=== PATIENT | female | born 1985 | race Caucasian/White ===

== ENCOUNTER 2018-03-14 21:10 | Emergency (ER) | payer MEDICAID ==
[~2018-03-14] VITALS: Ht 160 cm; Wt 52.0 kg
[~2018-03-14 21:10] MED LIST: CYCL-1 PO; MEDR150V IM; PREN1TAB79 PO; VENL-191 PO
[2018-03-14 21:14] VITALS: BP 149/94
[2018-03-14] MEDS ORDERED: LORazepam 1 MG tablet PO ONE (21:45)
[2018-03-14 21:59] LABS: BASOPHILS % (AUTO) 0.3 % (0-1); EOSINOPHILS # (AUTO) 0.3 X10'3 (0-0.9); EOSINOPHILS % (AUTO) 2.7 % (0-6); HEMATOCRIT 44.8 % (35.0-45.0); HEMOGLOBIN 15.2 g/dl (12.0-16.0); LYMPHOCYTES # (AUTO) 3.1 X10'3 (1.1-4.8); LYMPHOCYTES % (AUTO) 30.2 % (21-51); MEAN CORPUSCULAR HGB CONC 33.9 % (33.0-36.5); MEAN CORPUSCULAR VOLUME 94.4 FL (78-98); MEAN PLATELET VOLUME 7.9 FL (7.4-10.4); MONOCYTES # (AUTO) 0.7 X10'3 (0-0.9); MONOCYTES % (AUTO) 6.4 % (2-12); NEUTROPHILS # (AUTO) 6.2 X10'3 (1.8-7.7); NEUTROPHILS % (AUTO) 60.4 % (42-75); PLATELET COUNT 198 X10'3 (140-440); RED BLOOD COUNT 4.74 X10'6 (4.20-5.60); RED CELL DISTRIBUTION WIDTH 13.9 % (11.5-14.5); WHITE BLOOD COUNT 10.3 X10'3 (4.5-11.0)
[2018-03-14 22:14] LABS: ALANINE AMINOTRANSFERASE 28 U/L (12-78); ALBUMIN 4.2 G/DL (3.4-5.0); ALBUMIN/GLOBULIN RATIO 1.2 (1.1-1.5); ALKALINE PHOSPHATASE 57 IU/L (46-116); ANION GAP 10 (8-16); ASPARTATE AMINO TRANSFERASE 25 U/L (10-37); BILIRUBIN,TOTAL 0.4 MG/DL (0.1-1.0); BLOOD UREA NITROGEN 11 MG/DL (7-18); BUN/CREATININE RATIO 14.1 (6.6-38.0); CALCIUM 9.2 MG/DL (8.5-10.1); CHLORIDE 105 MMOL/L (99-107); CREATININE 0.78 MG/DL (0.40-0.90); GLUCOSE 100 MG/DL (70-104); POTASSIUM 3.7 MMOL/L (3.5-5.1); SODIUM 141 MMOL/L (135-145); TOTAL CARBON DIOXIDE 26.4 MMOL/L (24-32); TOTAL PROTEIN 7.7 G/DL (6.4-8.2); eGFR 86 ML/MIN
[2018-03-14 22:24] LABS: ETHANOL < 0.010 GM/DL (0.0-0.010)
[2018-03-14] MEDS ORDERED: LORA-269 PO (22:43)
== END 2018-03-14 23:08 | disposition home or self-care (01) ==
LOC: ER 21:11
DX: F41.0 Panic disorder [episodic paroxysmal anxiety] (principal); G89.29 Other chronic pain; Z88.8 Allergy status to other drugs, medicaments and biological substances; Z79.899 Other long term (current) drug therapy
CPT/HCPCS: 36415; 80053; 80320; 84443; 85025; 99284

== ENCOUNTER 2018-03-29 14:17 | Emergency (ER) | payer MEDICAID ==
[~2018-03-29] VITALS: Ht 160 cm; Wt 50.6 kg
[~2018-03-29 14:17] MED LIST changes: +LORA-269 PO
[2018-03-29 14:22] VITALS: BP 118/79
[2018-03-29] MEDS ORDERED: LORazepam 1 MG tablet PO ONE (14:50)
[2018-03-29 15:03] LABS: BASOPHILS % (AUTO) 0.4 % (0-1); EOSINOPHILS # (AUTO) 0.1 X10'3 (0-0.9); EOSINOPHILS % (AUTO) 1.8 % (0-6); HEMOGLOBIN 14.2 g/dl (12.0-16.0); LYMPHOCYTES # (AUTO) 2.1 X10'3 (1.1-4.8); LYMPHOCYTES % (AUTO) 27.4 % (21-51); MEAN CORPUSCULAR HEMOGLOBIN 32.3 PG (27.0-31.0); MEAN CORPUSCULAR HGB CONC 34.6 % (33.0-36.5); MEAN CORPUSCULAR VOLUME 93.2 FL (78-98); MEAN PLATELET VOLUME 7.4 FL (7.4-10.4); MONOCYTES # (AUTO) 0.4 X10'3 (0-0.9); MONOCYTES % (AUTO) 5.2 % (2-12); NEUTROPHILS % (AUTO) 65.2 % (42-75); PLATELET COUNT 253 X10'3 (140-440); RED CELL DISTRIBUTION WIDTH 13.1 % (11.5-14.5); WHITE BLOOD COUNT 7.6 X10'3 (4.5-11.0)
[2018-03-29 15:16] LABS: ALANINE AMINOTRANSFERASE 21 U/L (12-78); ALBUMIN 3.9 G/DL (3.4-5.0); ALBUMIN/GLOBULIN RATIO 1.1 (1.1-1.5); ALKALINE PHOSPHATASE 52 IU/L (46-116); ANION GAP 10 (8-16); ASPARTATE AMINO TRANSFERASE 18 U/L (10-37); BILIRUBIN,TOTAL 0.3 MG/DL (0.1-1.0); BLOOD UREA NITROGEN 12 MG/DL (7-18); CALCIUM 8.5 MG/DL (8.5-10.1); CHLORIDE 107 MMOL/L (99-107); GLUCOSE 97 MG/DL (70-104); POTASSIUM 3.6 MMOL/L (3.5-5.1); SODIUM 142 MMOL/L (135-145); TOTAL CARBON DIOXIDE 25.1 MMOL/L (24-32); TOTAL PROTEIN 7.3 G/DL (6.4-8.2); eGFR 83 ML/MIN
[2018-03-29 15:25] LABS: ETHANOL < 0.010 GM/DL (0.0-0.010)
[2018-03-30] MEDS ORDERED: GABA-532 PO (09:47)
[2018-03-30] MEDS ORDERED: RISP1TAB3 PO (09:47)
== END 2018-03-29 16:00 | disposition left against medical advice (07) ==
LOC: ER 14:18
DX: F22 Delusional disorders (principal); F41.9 Anxiety disorder, unspecified; G89.29 Other chronic pain; F32.9 Major depressive disorder, single episode, unspecified; F41.0 Panic disorder [episodic paroxysmal anxiety]; Z88.6 Allergy status to analgesic agent; Z79.899 Other long term (current) drug therapy
CPT/HCPCS: 36415; 80053; 80320; 84443; 85025; 99284

== ENCOUNTER 2018-03-29 16:22 | Emergency (ER) | payer MEDICAID ==
[~2018-03-29] VITALS: Ht 558.9 cm; Wt 50.0 kg
[2018-03-29] MEDS ORDERED: LORazepam 1 MG tablet PO ONE (16:50)
[2018-03-29] MEDS ORDERED: LORazepam 2 mg/ml vial IM ONE (17:00)
[2018-03-29] MEDS ORDERED: diphenhydrAMINE 50 mg/ml inj IM ONE (17:00)
[2018-03-29] MEDS ORDERED: haloperidol lactate 5mg/ml inj IM ONE (17:00)
[2018-03-30 08:41] LABS: URINE AMPHETAMINE SCREEN NEGATIVE (Neg); URINE BARBITUATE SCREEN NEGATIVE (Neg); URINE BENZODIAZEPINES SCREEN NEGATIVE (Neg); URINE CANNABINOID SCREEN POSITIVE (Neg); URINE COCAINE SCREEN NEGATIVE (Neg); URINE METHADONE SCREEN NEGATIVE (Neg); URINE OPIATE SCREEN NEGATIVE (Neg); URINE PHENCYCLIDINE SCREEN NEGATIVE (Neg)
[2018-03-30 08:50] LABS: CLARITY,URINE SLIGHTLY CLOUDY (Clear); COLOR,URINE YELLOW (Yellow); GLUCOSE, URINE NEGATIVE (Neg); KETONES,URINE NEGATIVE (Neg); LEUKOCYTE ESTERASE ,URINE NEGATIVE (Neg); NITRITES, URINE POSITIVE (Neg); OCCULT BLOOD,URINE LARGE (Neg); PROTEIN,URINE NEGATIVE (Neg); UROBILINOGEN,URINE 0.2 E.U/dL (0.2-1.0)
[2018-03-30 08:58] LABS: UA COLLECTION TYPE CLN CATCH MIDSTREAM
[2018-03-30 08:59] LABS: BACTERIA,URINE 4+ /HPF (Neg); MUCUS STRANDS NONE SEEN /LPF (Neg); RBC,URINE 0-2 /HPF (0-2); SQUAMOUS EPITHELIAL CELL,UR FEW /LPF (FEW); WBC,URINE 0-4 /HPF (0-4)
[2018-03-30] MEDS ORDERED: RISP1TAB3 PO (09:47)
[2018-03-30] MEDS ORDERED: GABA-532 PO (09:47)
[2018-03-30] MEDS ORDERED: cyclobenzaprine 10mg tablet PO PRN (11:35)
[2018-03-30] MEDS ORDERED: LORazepam 1 MG tablet PO PRN (11:35)
[2018-03-30] MEDS ORDERED: gabapentin 300mg capsule PO SCH ×4 (12:00→20:00)
[2018-03-30 20:02] LABS: URINE HCG NEGATIVE (NEG)
[2018-03-30] MEDS ORDERED: risperiDONE 0.5mg tablet PO SCH (21:00)
[2018-03-30 23:05] VITALS: BP 119/80
[2018-03-31] MEDS ORDERED: venlafaxine XR 75mg capsule (Q24H) PO SCH (08:00)
[2018-06-28] MEDS ORDERED: medroxyPROGESTERone acetate 150mg/ml inj IM SCH (08:00)
== END 2018-03-30 23:18 ==
LOC: ER 16:22
DX: F41.0 Panic disorder [episodic paroxysmal anxiety] (principal); F32.9 Major depressive disorder, single episode, unspecified; F29 Unspecified psychosis not due to a substance or known physiological condition; F22 Delusional disorders; G89.29 Other chronic pain; Z88.8 Allergy status to other drugs, medicaments and biological substances; Z79.899 Other long term (current) drug therapy
CPT/HCPCS: 36415; 80305; 81001; 81025; 84443; 87088; 96372; 99285; J1200; J1630; J2060; 87077; 87186

== ENCOUNTER 2018-12-04 17:28 | Emergency (ER) | payer MEDICAID ==
[~2018-12-04] VITALS: Ht 160 cm; Wt 56.8 kg
[~2018-12-04 17:28] MED LIST changes: +GABA-532 PO; -PREN1TAB79 PO; +RISP1TAB3 PO
[2018-12-04 17:34] VITALS: BP 121/77
[2018-12-04] MEDS ORDERED: IBUP-1985 PO (18:00)
[2018-12-04] MEDS ORDERED: AMOX-422 PO (18:00)
[2018-12-04] MEDS ORDERED: HYDROcodone/acetaminophen 10/325mg tab PO ONE (18:05)
== END 2018-12-04 18:13 | disposition home or self-care (01) ==
LOC: ER 17:28
DX: K08.89 Other specified disorders of teeth and supporting structures (principal); G89.29 Other chronic pain; Z88.5 Allergy status to narcotic agent; Z79.2 Long term (current) use of antibiotics; Z79.899 Other long term (current) drug therapy
CPT/HCPCS: 99283

== ENCOUNTER 2019-01-22 15:52 | Emergency (ER) | payer MEDICAID ==
[~2019-01-22] VITALS: Ht 160 cm; Wt 55.9 kg
[~2019-01-22 15:52] MED LIST changes: +IBUP-1985 PO
[2019-01-22 16:06] VITALS: BP 144/86
[2019-01-22] MEDS ORDERED: AMOX-580 PO (16:33)
== END 2019-01-22 16:48 | disposition home or self-care (01) ==
LOC: ER 15:53
DX: K13.79 Other lesions of oral mucosa (principal); M54.2 Cervicalgia; R61 Generalized hyperhidrosis; R00.0 Tachycardia, unspecified; R51 Headache; R50.9 Fever, unspecified; K06.8 Other specified disorders of gingiva and edentulous alveolar ridge; K08.409 Partial loss of teeth, unspecified cause, unspecified class; G89.29 Other chronic pain; F17.200 Nicotine dependence, unspecified, uncomplicated; Z88.6 Allergy status to analgesic agent; Z79.899 Other long term (current) drug therapy; Z79.2 Long term (current) use of antibiotics; Z98.818 Other dental procedure status
CPT/HCPCS: 99283

== ENCOUNTER → 2019-01-31 | Emergency (ER) | payer MEDICAID ==
[~2019-01-31] VITALS: Ht 160 cm; Wt 52.7 kg
[~2019-01-31] MED LIST changes: +NO HOME MEDS; +hydrOXYzine 10 MG tablet PO PRN; +hydrOXYzine 25 MG tablet PO ONE; +risperiDONE 0.5mg tablet PO ONE; +risperiDONE 0.5mg tablet PO SCH; +risperiDONE 2mg tablet PO ONE; +risperiDONE 2mg tablet PO SCH
--- NOTE | 2019-01-31 16:06 | NUR ---
PATIENT DENIES TAKING ANY MEDICATIONS.
[2019-01-31 16:14] LABS: URINE HCG NEGATIVE (NEG)
[2019-01-31 16:21] LABS: URINE AMPHETAMINE SCREEN NEGATIVE (Neg); URINE BARBITUATE SCREEN NEGATIVE (Neg); URINE BENZODIAZEPINES SCREEN NEGATIVE (Neg); URINE CANNABINOID SCREEN NEGATIVE (Neg); URINE COCAINE SCREEN NEGATIVE (Neg); URINE METHADONE SCREEN NEGATIVE (Neg); URINE OPIATE SCREEN NEGATIVE (Neg); URINE PHENCYCLIDINE SCREEN NEGATIVE (Neg)
[2019-01-31 16:24] LABS: CLARITY,URINE CLEAR (Clear); COLOR,URINE YELLOW (Yellow); GLUCOSE, URINE NEGATIVE (Neg); KETONES,URINE NEGATIVE (Neg); LEUKOCYTE ESTERASE ,URINE NEGATIVE (Neg); NITRITES, URINE NEGATIVE (Neg); OCCULT BLOOD,URINE NEGATIVE (Neg); PROTEIN,URINE NEGATIVE (Neg); UROBILINOGEN,URINE 0.2 E.U/dL (0.2-1.0)
[2019-01-31 16:36] LABS: UA COLLECTION TYPE CLN CATCH MIDSTREAM
[2019-01-31 16:42] LABS: BASOPHILS % (AUTO) 0.2 % (0-1); EOSINOPHILS # (AUTO) 0.1 X10'3 (0-0.9); EOSINOPHILS % (AUTO) 1.1 % (0-6); HEMATOCRIT 45.3 % (35.0-45.0); LYMPHOCYTES # (AUTO) 3.8 X10'3 (1.1-4.8); MEAN CORPUSCULAR HEMOGLOBIN 31.3 PG (27.0-31.0); MEAN CORPUSCULAR VOLUME 94.7 FL (78-98); MEAN PLATELET VOLUME 8.4 FL (7.4-10.4); MONOCYTES # (AUTO) 0.7 X10'3 (0-0.9); MONOCYTES % (AUTO) 5.9 % (2-12); NEUTROPHILS # (AUTO) 7.6 X10'3 (1.8-7.7); NEUTROPHILS % (AUTO) 61.8 % (42-75); PLATELET COUNT 250 X10'3 (140-440); RED BLOOD COUNT 4.79 X10'6 (4.20-5.60); RED CELL DISTRIBUTION WIDTH 13.3 % (11.5-14.5); WHITE BLOOD COUNT 12.3 X10'3 (4.5-11.0)
[2019-01-31 16:55] LABS: ALANINE AMINOTRANSFERASE 21 U/L (12-78); ALBUMIN 4.3 G/DL (3.4-5.0); ALBUMIN/GLOBULIN RATIO 1.3 (1.1-1.5); ALKALINE PHOSPHATASE 56 IU/L (46-116); ANION GAP 10 (8-16); ASPARTATE AMINO TRANSFERASE 11 U/L (10-37); BILIRUBIN,TOTAL 0.5 MG/DL (0.1-1.0); BLOOD UREA NITROGEN 9 MG/DL (7-18); BUN/CREATININE RATIO 10.6 (6.6-38.0); CALCIUM 9.8 MG/DL (8.5-10.1); CHLORIDE 105 MMOL/L (99-107); CREATININE 0.85 MG/DL (0.40-0.90); GLUCOSE 89 MG/DL (70-104); SODIUM 141 MMOL/L (135-145); TOTAL PROTEIN 7.6 G/DL (6.4-8.2); eGFR 78 ML/MIN
[2019-01-31 17:07] LABS: ETHANOL < 0.010 GM/DL (0.0-0.010)
--- NOTE | 2019-01-31 17:21 | NUR ---
Patient transferred from the Main ER to Bed 21. Stated she was hungry. Given julian crackers and milk. When asked what brought her to the hospital, stated "The spirits brought me."
--- NOTE | 2019-01-31 18:38 | NUR ---
ASSUMED CARE FOR CARD LACER FROM DAY SHIFT LIEN LOPEZ 5150 WRITTEN BY [facility].
--- NOTE | 2019-01-31 18:52 | NUR ---
changed IAM to level 2 r/t hold
--- NOTE | 2019-01-31 19:54 | NUR ---
PT IS IN BED, EYES CLOSED, ON HER LEFT SIDE, APPEARS TO BE SLEEPING, REGULAR BREATHING
--- NOTE | 2019-01-31 20:53 | NUR ---
I CALLED PT'S , LESLY, PER PT REQUEST SHE IS VERY WORRIED ABOUT HER 4 CHILDREN AND IF THEY WERE PICKED UP FROM SCHOOL TODAY AND WHERE THEY ARE NOW. SHE REPORTS SHE LIVES WITH HER AND HER CHILDREN. REPORTS CHILDREN HAVE BEEN PICKED UP WITH NO PROBLEMS. PHONE GIVEN TO HER AND SHE SPENT 20 MIN ON THE PHONE WITH HIM SOBBING INTERMITTENTLY BUT WAS CALM AND HAVING AN APPROPRIATE CONVERSATION. PT REQUESTING THAT I CALL HIM ALSO FOR UPDATED. PT REQUESTING SOMETHING TO HELP HER SLEEP. REPORTS SHE TAKES NO HOME MEDS.
[2019-01-31] MEDS: Melatonin 3mg tablet PO SCH (21:45)
--- NOTE | 2019-01-31 22:04 | NUR ---
I PROVIDED PT WITH THE HYDROXYZINE AND MELATONIN TABLETS AND SHE HELD THE PILL CUP IN HER HANDS AND WAS SHAKING. I TALKED TO HER ABOUT THE MEDS AND ENCOURAGED HER TO TAKE THEM TO HELP WITH HER ANXIETY AND TO SLEEP. SHE REPORTS "CAN I JUST GO HOME" . PT REMINDED OF THE 5150 INVOLUNTARY HOLD. PT CRYING INTERMITTENTLY AND STARRING OFF AND DOES NOT SEEM TO BE PROCESSING WELL. CONTINUED HOLD THE PILLS AND THE WATER WITH TREMORING HANDS. I TOLD HER SHE DID NOT AHVE TO TAKE THEM IF SHE DID NOT WANT TO. SHE STARTED TO HAND THEM BACK THEN BROUGHT THEM BACK TO HER MOUTH. THIS CONTINUED OVER 10 MIN AND I SAID I WOULD HOLD THEM AND SHE CAN ASK FOR THEM LATER THEN SHE PUT THEM IN HER MOUTH AND BEGAN CRYING. PT WOULD NOT TAKE ANY WATER AND DROPPED ON THE THE TABLETS OF HYDROXYZINE. SHE IS NOW SITTING UP IN THE BED STARING AT ME. I ASKED IF SHE NEEDS ANYTHING AND SHE DOES NOT REPLY.
--- NOTE | 2019-02-01 00:57 | NUR ---
Pt has been asleep for aprox 1 hr. Currently lying on her left side and has blankets covering to her shouders. RR 14 and unlabored.
--- NOTE | 2019-02-01 04:23 | NUR ---
pt rolled over and sat up , took a sip of her water on the bedside table and then rolled over and went back to sleep.
--- NOTE | 2019-02-01 09:45 | NUR ---
PATIENT AWAKE,NO REPORTED DISCOMFORT AT THIS TIME.
--- NOTE | 2019-02-01 13:38 | NUR ---
pt is awake, sitting at bedside, head down, no agitation observed, just ate her lunch
--- NOTE | 2019-02-01 18:45 | NUR ---
Pt denies S/H/I at this time. She denies audio/visual hallucinations. Pt's affect is flat while mood is labile, vacillating between social withdrawl and moderately high anxiety/restlessness. Pt reports a previous suicide attempt "years ago by overdosing on pills." Pt presents fixated on leaving facility as a result Elopement band was placed. Pt expressed concern over her children and . When encouraged to share about her relationships and later how she came to be at [facility], pt shut down. Pt reports having a "miscarriage about a month ago." When asked how she was dealing with the loss, pt stated, "That's just how it goes sometime, you know."
--- NOTE | 2019-02-01 19:35 | NUR ---
Eloppement band #[id number] placed on pt's right wrist. Educated pt for the need of band.
--- NOTE | 2019-02-01 20:09 | NUR ---
Discussed pt's increased restless and anxiety with Dr Sierra; new orders received to include Risperdol 1mg bid, which pt reports having taken in the past with positive effect.
[2019-02-01] MEDS: Melatonin 3mg tablet PO SCH (21:00)
--- NOTE | 2019-02-01 21:40 | NUR ---
Pt moved from ED21 to ED20 to allow for relocation of a separate pt.
--- NOTE | 2019-02-01 22:30 | NUR ---
Pt sought information r/t schizophrenia. She shared being concerned about her SOLE dx, wondering if she might be schizophrenic. Reviewed some of the major parameters associated with each, asking pt what sort of things she experienced, further leading to her deciding her current dx was most accurate at this time. The exchange appeared to have a positive impact on pt as she engaged with others including staff more fully, being generally less guarded than she had been earlier in the shift. Additionally, pt shared her initial concern was r/t interactions with her which pt states, "keeps wanting me to check myself into a mental hospital." When probed about when and why the exchange occurred, pt said, "I get upset and really worried about things. I think it makes him afraid. He wants me to be better."
--- NOTE | 2019-02-02 | NUR ---
Pt asleep on back. RR 13, even and unlabored. No apparent distress @ this time.
--- NOTE | 2019-02-02 02:58 | NUR ---
Pt asleep on right side. RR 12, even and unlabored. No apparent distress at this time.
[2019-02-02 05:30] VITALS: BP 105/64
--- NOTE | 2019-02-02 05:45 | NUR ---
Pt asleep on left side. RR 13, even and unlabored. No apparent distress at this time.
--- NOTE | 2019-02-02 09:40 | NUR ---
PT QUESTIONING NEED FOR RISPERDAL. STATED THAT SHE TOOK IT LAST NIGHT AND THAT IT WAS A HALF OF A TABLET. EXPLAINED TO PT THAT THE DOSE SHE WAS GIVEN WAS 1MG OF RISPERDAL FROM A 2MG TABLET HENCE BEING GIVEN A HALF OF TABLET LAST NIGHT. PT CONTINUED TO QUESTION NEED FOR MEDICATION. PT WAS TOLD THAT THE MEDICATION WOULD TAKE A WHILE TO HELP HER AND THAT IT WILL HELP HER. PT DECIDED TO TAKE THE RISPERDAL.
--- NOTE | 2019-02-02 11:39 | NUR ---
PT'S CALLED WITH CONTACT PHONE # FOR PT'S CHILDREN: [phone]
--- NOTE | 2019-02-02 13:25 | NUR ---
PT'S IS AT BEDSIDE, PT IS TEARFUL/CRYING. SAFETY LUNCH TRAY DELIVERED TO PT
--- NOTE | 2019-02-02 13:40 | NUR ---
NURSE TO NURSE REPORT TO ANDREI GOMEZ FROM [facility] GIVEN.
--- NOTE | 2019-02-02 14:09 | NUR ---
PT HAS BEEN ACCEPTED TO [facility] WITH DR FRANCISCO ACCEPTING. CONSULTING NETWORKING ENGINEER ETA IS [phone]
--- NOTE | 2019-02-02 14:58 | NUR ---
PT NOTIFIED OF TRANSFER TO [facility] [place] [facility]. PT IS TEARY, ANXIOUS. PT ASKED FOR PHONE TO CALL AND NOTIFIY HIM.
== END | disposition home or self-care (01) ==
LOC: ER 15:14
DX: F22 Delusional disorders (principal); G89.29 Other chronic pain; F32.9 Major depressive disorder, single episode, unspecified; F41.0 Panic disorder [episodic paroxysmal anxiety]; Z88.6 Allergy status to analgesic agent; Z79.899 Other long term (current) drug therapy
CPT/HCPCS: 36415; 80053; 80305; 80320; 81003; 81025; 84443; 85025; 99285; Q0177

== ENCOUNTER 2023-09-07 12:17 | Emergency (ER) | payer MEDICAID ==
[~2023-09-07] VITALS: Ht 160 cm; Wt 54.1 kg
[~2023-09-07 12:17] MED LIST changes: -CYCL-1 PO; -GABA-532 PO; -IBUP-1985 PO; -LORA-269 PO; -MEDR150V IM; -RISP1TAB3 PO; -VENL-191 PO; -hydrOXYzine 10 MG tablet PO PRN; -hydrOXYzine 25 MG tablet PO ONE; -risperiDONE 0.5mg tablet PO ONE; -risperiDONE 0.5mg tablet PO SCH; -risperiDONE 2mg tablet PO ONE; -risperiDONE 2mg tablet PO SCH
[2023-09-07 16:49] LABS: BASOPHILS % (AUTO) 0.3 % (0-1); EOSINOPHILS # (AUTO) 0.3 X10'3 (0-0.9); EOSINOPHILS % (AUTO) 3.3 % (0-6); HEMATOCRIT 43.5 % (35.0-45.0); HEMOGLOBIN 14.7 g/dl (12.0-16.0); LYMPHOCYTES # (AUTO) 2.4 X10'3 (1.1-4.8); MEAN CORPUSCULAR HEMOGLOBIN 31.8 PG (27.0-31.0); MEAN CORPUSCULAR HGB CONC 33.8 g/dL (33.0-36.5); MEAN CORPUSCULAR VOLUME 94.1 FL (78-98); MEAN PLATELET VOLUME 7.4 FL (7.4-10.4); MONOCYTES # (AUTO) 0.7 X10'3 (0-0.9); NEUTROPHILS % (AUTO) 66.4 % (42-75); PLATELET COUNT 265 X10'3 (140-440); RED BLOOD COUNT 4.62 X10'6 (4.20-5.60); WHITE BLOOD COUNT 10.5 X10'3 (4.5-11.0)
[2023-09-07 17:08] LABS: ALANINE AMINOTRANSFERASE 19 U/L (12-78); ALBUMIN 4.1 G/DL (3.4-5.0); ALBUMIN/GLOBULIN RATIO 1.3 (1.1-1.5); ALKALINE PHOSPHATASE 56 IU/L (46-116); ANION GAP 7 (8-16); ASPARTATE AMINO TRANSFERASE 21 U/L (10-37); BILIRUBIN,TOTAL 0.4 MG/DL (0.1-1.0); BLOOD UREA NITROGEN 13 MG/DL (7-18); BUN/CREATININE RATIO 13.7 (10.0-20.0); CALCIUM 9.5 MG/DL (8.5-10.1); CHLORIDE 106 MMOL/L (99-107); CREATININE 0.95 MG/DL (0.40-0.90); GLUCOSE 113 MG/DL (70-104); POTASSIUM 3.8 MMOL/L (3.5-5.1); SODIUM 141 MMOL/L (135-145); TOTAL CARBON DIOXIDE 27.8 MMOL/L (24-32); TOTAL PROTEIN 7.2 G/DL (6.4-8.2); eCRCL 67 ML/MIN; eGFR 66 ML/MIN
[2023-09-07 17:17] LABS: THYROID STIMULATING HORMONE 1.17 ulU/ml (0.34-4.50)
[2023-09-07] MEDS ORDERED: clonazePAM 1mg tablet PO ONE (17:20)
[2023-09-07 17:23] LABS: ETHANOL < 10 MG/DL (<10)
--- NOTE | 2023-09-07 18:30 | NUR ---
Patient brought from fast track. The EXHIBIT SPECIALIST who brought this patient over knows a minimal history only. The patient is on a 179 for GD. This patient is awake, tearful, she is cooperative.
--- NOTE | 2023-09-07 21:38 | NUR ---
Patient appears to be sleeping without difficulty; even respirations and self repositioning.
--- NOTE | 2023-09-07 23:00 | NUR ---
Patient laying in bed; appears to be sleeping without difficulty. Patient self repositions and respirations even.
--- NOTE | 2023-09-08 02:00 | NUR ---
Patient continues to be resting; no apparent difficulties. Respirations even and self repositions.
--- NOTE | 2023-09-08 05:12 | NUR ---
Patient laying in bed; appears to be sleeping without difficulty. Even respirations and self repositioning.
[2023-09-08 06:18] VITALS: BP 91/59; PULSE 76; RESP 16; O2SAT 97
--- NOTE | 2023-09-08 06:30 | NUR ---
Pt. asleep on her left side, no s/sx of distress, chest rise and fall
--- NOTE | 2023-09-08 08:30 | NUR ---
Pt. awake and eating breakfast in her bed, denies SI, denies anxiety, no distress noted
[2023-09-08 08:40] LABS: BILIRUBIN,URINE NEGATIVE (Neg); CLARITY,URINE CLOUDY (Clear); COLOR,URINE YELLOW (Yellow); GLUCOSE, URINE NEGATIVE (Neg); KETONES,URINE NEGATIVE (Neg); LEUKOCYTE ESTERASE ,URINE MODERATE (Neg); NITRITES, URINE POSITIVE (Neg); OCCULT BLOOD,URINE NEGATIVE (Neg); PROTEIN,URINE NEGATIVE (Neg); UROBILINOGEN,URINE 0.2 E.U/dL (0.2-1.0)
[2023-09-08 08:43] LABS: URINE HCG NEGATIVE (NEG)
[2023-09-08 08:47] LABS: UA COLLECTION TYPE NON-SPECIFIED
[2023-09-08 08:48] LABS: BACTERIA,URINE 4+ /HPF (Neg); SQUAMOUS EPITHELIAL CELL,UR MANY /LPF (FEW); WBC CLUMPS,URINE MANY /HPF (NEGATIVE); WBC,URINE TNTC /HPF (0-4)
[2023-09-08 09:02] LABS: URINE AMPHETAMINE SCREEN NEGATIVE (Neg); URINE BARBITUATE SCREEN NEGATIVE (Neg); URINE BENZODIAZEPINES SCREEN NEGATIVE (Neg); URINE CANNABINOID SCREEN POSITIVE (Neg); URINE COCAINE SCREEN NEGATIVE (Neg); URINE METHADONE SCREEN NEGATIVE (Neg); URINE OPIATE SCREEN NEGATIVE (Neg); URINE PHENCYCLIDINE SCREEN NEGATIVE (Neg)
--- NOTE | 2023-09-08 10:30 | NUR ---
Pt. awake sitting in her bed, has a visitor at the bedside, no distress noted
[2023-09-08] MEDS ORDERED: CLON-371 PO (11:55)
--- NOTE | 2023-09-08 12:09 | NUR ---
Recieved DC paperwork, all documents signed, will finish her lunch and leave.
[2023-09-08 15:03] VITALS: TEMP 97.7
== END 2023-09-08 15:05 | disposition home or self-care (01) ==
LOC: ER 12:18 → EEVIPCON 12:18 → ER 09-08 15:05
DX: F41.9 Anxiety disorder, unspecified (principal); Z20.822 Contact with and (suspected) exposure to COVID-19; F32.A Depression, unspecified; G89.29 Other chronic pain; F43.10 Post-traumatic stress disorder, unspecified; Z88.8 Allergy status to other drugs, medicaments and biological substances; Z87.440 Personal history of urinary (tract) infections; Z88.6 Allergy status to analgesic agent
CPT/HCPCS: 36415; 80053; 80305; 80320; 81001; 81025; 84443; 85025; 87811; 99284

== ENCOUNTER 2023-10-04 19:31 | Inpatient (IN) | payer MEDICAID ==
[~2023-10-04] VITALS: Ht 160 cm; Wt 53.0 kg
[~2023-10-04 19:31] MED LIST changes: +CLON-371 PO
[2023-10-04] MEDS ORDERED: CLON0.1T2 PO (20:36)
[2023-10-04] MEDS ORDERED: HYDR50TA65 PO (20:36)
[2023-10-04] MEDS ORDERED: BUSP5TAB3 PO (20:36)
[2023-10-04] MEDS ORDERED: CLON1TAB13 PO (20:36)
[2023-10-04 20:41] LABS: BASOPHILS # (AUTO) 0.1 X10'3 (0-0.2); BASOPHILS % (AUTO) 1.1 % (0-1); EOSINOPHILS # (AUTO) 0.2 X10'3 (0-0.9); EOSINOPHILS % (AUTO) 2.4 % (0-6); HEMATOCRIT 40.1 % (35.0-45.0); HEMOGLOBIN 13.6 g/dl (12.0-16.0); LYMPHOCYTES # (AUTO) 1.2 X10'3 (1.1-4.8); LYMPHOCYTES % (AUTO) 12.1 % (21-51); MEAN CORPUSCULAR HEMOGLOBIN 31.7 PG (27.0-31.0); MEAN CORPUSCULAR HGB CONC 33.8 g/dL (33.0-36.5); MEAN CORPUSCULAR VOLUME 93.8 FL (78-98); MEAN PLATELET VOLUME 7.5 FL (7.4-10.4); MONOCYTES # (AUTO) 0.5 X10'3 (0-0.9); MONOCYTES % (AUTO) 4.7 % (2-12); NEUTROPHILS # (AUTO) 7.7 X10'3 (1.8-7.7); NEUTROPHILS % (AUTO) 79.7 % (42-75); PLATELET COUNT 207 X10'3 (140-440); RED BLOOD COUNT 4.27 X10'6 (4.20-5.60); RED CELL DISTRIBUTION WIDTH 13.4 % (11.5-14.5); WHITE BLOOD COUNT 9.6 X10'3 (4.5-11.0)
[2023-10-04] MEDS ORDERED: CARI1.5C PO (20:48)
[2023-10-04 20:55] LABS: ALANINE AMINOTRANSFERASE 26 U/L (12-78); ALBUMIN 3.8 G/DL (3.4-5.0); ALBUMIN/GLOBULIN RATIO 1.1 (1.1-1.5); ALKALINE PHOSPHATASE 59 IU/L (46-116); ANION GAP 4 (8-16); ASPARTATE AMINO TRANSFERASE 18 U/L (10-37); BILIRUBIN,TOTAL 0.7 MG/DL (0.1-1.0); BLOOD UREA NITROGEN 16 MG/DL (7-18); BUN/CREATININE RATIO 19.3 (10.0-20.0); CALCIUM 8.7 MG/DL (8.5-10.1); CHLORIDE 105 MMOL/L (99-107); CREATININE 0.83 MG/DL (0.40-0.90); ETHANOL < 10 MG/DL (<10); GLUCOSE 99 MG/DL (70-104); POTASSIUM 4.2 MMOL/L (3.5-5.1); SODIUM 139 MMOL/L (135-145); TOTAL CARBON DIOXIDE 29.6 MMOL/L (24-32); TOTAL PROTEIN 7.2 G/DL (6.4-8.2); eCRCL 80 ML/MIN; eGFR 77 ML/MIN
[2023-10-04 21:31] LABS: URINE HCG NEGATIVE (NEG)
[2023-10-04 21:39] LABS: BILIRUBIN,URINE NEGATIVE (Neg); CLARITY,URINE CLOUDY (Clear); COLOR,URINE YELLOW (Yellow); GLUCOSE, URINE NEGATIVE (Neg); KETONES,URINE NEGATIVE (Neg); LEUKOCYTE ESTERASE ,URINE TRACE (Neg); NITRITES, URINE POSITIVE (Neg); OCCULT BLOOD,URINE NEGATIVE (Neg); PROTEIN,URINE NEGATIVE (Neg); UROBILINOGEN,URINE 0.2 E.U/dL (0.2-1.0)
[2023-10-04 21:41] LABS: UA COLLECTION TYPE VOIDED
[2023-10-04] MEDS ORDERED: OLANZapine 2.5MG tablet PO ONE (21:45)
[2023-10-04 21:46] LABS: URINE AMPHETAMINE SCREEN NEGATIVE (Neg); URINE BARBITUATE SCREEN NEGATIVE (Neg); URINE BENZODIAZEPINES SCREEN NEGATIVE (Neg); URINE CANNABINOID SCREEN NEGATIVE (Neg); URINE COCAINE SCREEN NEGATIVE (Neg); URINE METHADONE SCREEN NEGATIVE (Neg); URINE OPIATE SCREEN NEGATIVE (Neg); URINE PHENCYCLIDINE SCREEN NEGATIVE (Neg)
[2023-10-04 21:48] LABS: BACTERIA,URINE 4+ /HPF (Neg); MUCUS STRANDS FEW /LPF (Neg); SQUAMOUS EPITHELIAL CELL,UR MODERATE /LPF (FEW); TRANSITIONAL EPI CELLS,URINE FEW /HPF
[2023-10-04 21:50] LABS: WBC,URINE 30-50 /HPF (0-4)
[2023-10-04] MEDS ORDERED: cloNIDine 0.1 mg tablet PO PRN (21:50)
[2023-10-04] MEDS ORDERED: hydrOXYzine 25 MG tablet PO PRN (21:55)
[2023-10-05] MEDS: busPIRone 5mg tablet PO SCH ×2 (08:00→21:32)
[2023-10-05] MEDS ORDERED: LORazepam 1 MG tablet PO ONE (11:05)
[2023-10-05] MEDS: CARIPRAZINE 1.5 MG CAPSULE PO SCH (11:12)
[2023-10-05] MEDS ORDERED: mag hydrox/Alum hydrox/simeth 30ml oral suspension PO PRN (12:45)
[2023-10-05] MEDS ORDERED: magnesium hydroxide 30ml (MOM) UD suspension PO PRN (12:45)
[2023-10-05] MEDS ORDERED: loperamide 2mg capsule PO PRN (12:45)
[2023-10-05] MEDS ORDERED: acetaminophen 325mg tablet PO PRN ×2 (12:45)
[2023-10-05 13:00] VITALS: RESP 16; O2SAT 98
[2023-10-05 13:10] VITALS: BP 98/60; PULSE 90; RESP 16; TEMP 98.3; O2SAT 98
[2023-10-05] MEDS: cephalexin 250mg capsule PO SCH ×3 (13:58→21:31)
[2023-10-05 19:00] VITALS: RESP 18; O2SAT 100
[2023-10-05 20:00] VITALS: BP 97/64; PULSE 85; RESP 18; TEMP 97.3; O2SAT 100
[2023-10-05] MEDS: clonazePAM 1mg tablet PO SCH (21:32)
[2023-10-06 07:00] VITALS: RESP 16; O2SAT 98
[2023-10-06] MEDS: CARIPRAZINE 1.5 MG CAPSULE PO SCH (07:27)
[2023-10-06] MEDS: busPIRone 5mg tablet PO SCH ×2 (07:27→21:48)
[2023-10-06] MEDS: cephalexin 250mg capsule PO SCH ×2 (07:27→12:05)
[2023-10-06 07:40] VITALS: BP 89/47; PULSE 79; RESP 16; TEMP 97.8; O2SAT 98
[2023-10-06 10:56] LABS: CHOL/HDL RATIO 2.1 (0.00-4.99); CHOLESTEROL 91 MG/DL (0-200); HDL CHOLESTEROL 43 MG/DL (35-60); LDL CHOLESTEROL 39 MG/DL (50-100); TRIGLYCERIDES 47 MG/DL (20-135)
[2023-10-06 11:23] LABS: HEMOGLOBIN A1C 5.1 % (4.5-6.2)
[2023-10-06] MEDS ORDERED: sulfamethoxazole/trimethoprim DS (800/160mg) tablet PO SCH (12:40)
[2023-10-06] MEDS: sulfamethoxazole/trimethoprim DS (800/160mg) tablet PO SCH ×2 (13:03→21:48)
[2023-10-06 19:00] VITALS: RESP 16; O2SAT 90
[2023-10-06 20:00] VITALS: BP 91/64; PULSE 90; RESP 18; TEMP 97.9; O2SAT 99
[2023-10-06] MEDS: clonazePAM 1mg tablet PO SCH (21:00)
[2023-10-07 07:00] VITALS: BP 98/64; PULSE 110; RESP 16; TEMP 98; O2SAT 98
[2023-10-07] MEDS: CARIPRAZINE 1.5 MG CAPSULE PO SCH (07:56)
[2023-10-07] MEDS: busPIRone 5mg tablet PO SCH ×2 (07:56→20:00)
[2023-10-07] MEDS: sulfamethoxazole/trimethoprim DS (800/160mg) tablet PO SCH ×2 (07:56→20:00)
[2023-10-07 13:14] LABS: HBSAG SCREEN Negative (Negative); HEP B CORE AB, IGM Negative (Negative); HEP B CORE AB, TOT Negative (Negative)
[2023-10-07 19:00] VITALS: BP 111/76; PULSE 101; RESP 16; TEMP 97.6; O2SAT 99
[2023-10-07] MEDS: clonazePAM 1mg tablet PO PRN (21:28)
[2023-10-08 07:00] VITALS: RESP 16; O2SAT 100
[2023-10-08] MEDS: sulfamethoxazole/trimethoprim DS (800/160mg) tablet PO SCH ×2 (07:52→20:57)
[2023-10-08] MEDS: busPIRone 5mg tablet PO SCH (07:52)
[2023-10-08] MEDS: CARIPRAZINE 1.5 MG CAPSULE PO SCH (07:53)
[2023-10-08 08:00] VITALS: BP 106/72; PULSE 88; RESP 16; TEMP 97.6; O2SAT 100
[2023-10-08] MEDS: clonazePAM 1mg tablet PO PRN (10:16)
[2023-10-08] MEDS ORDERED: hydrOXYzine 10 MG tablet PO PRN (13:30)
[2023-10-08 19:35] VITALS: BP 100/70; PULSE 100; RESP 16; TEMP 97.5; O2SAT 100
[2023-10-08] MEDS ORDERED: CARIPRAZINE 1.5 MG CAPSULE PO SCH (21:00)
[2023-10-09 07:00] VITALS: RESP 16; O2SAT 97
[2023-10-09] MEDS: sulfamethoxazole/trimethoprim DS (800/160mg) tablet PO SCH (07:13)
[2023-10-09 08:00] VITALS: BP 108/66; PULSE 78; RESP 16; TEMP 97.9; O2SAT 97
[2023-10-09] MEDS ORDERED: CARIPRAZINE 1.5 MG CAPSULE PO SCH (08:00)
[2023-10-09] MEDS ORDERED: CLON0.5T4 PO (15:48)
[2023-10-09] MEDS ORDERED: CARI3CAP PO (15:48)
[2023-10-09] MEDS ORDERED: SULF1TAB45 PO (15:52)
== END 2023-10-09 16:38 | disposition home or self-care (01) | DRG 751 ==
LOC: ER 19:31 → ED HOLD 10-05 11:40 → ADULT MH 10-05 12:37
PROVIDERS: ADMIT Psychiatry & Neurology Psychiatry; ATTEND Psychiatry & Neurology Psychiatry
PROC: GZHZZZZ Group Psychotherapy (ICD-10-PCS; principal; 2023-10-06)
PROC: GZ51ZZZ Individual Psychotherapy, Behavioral (ICD-10-PCS; 2023-10-06)
DX: F29 Unspecified psychosis not due to a substance or known physiological condition (principal); F23 Brief psychotic disorder; F12.90 Cannabis use, unspecified, uncomplicated; F41.9 Anxiety disorder, unspecified; F32.A Depression, unspecified; N39.0 Urinary tract infection, site not specified; G89.29 Other chronic pain; Z20.822 Contact with and (suspected) exposure to COVID-19; F43.10 Post-traumatic stress disorder, unspecified; Z88.8 Allergy status to other drugs, medicaments and biological substances; Z79.899 Other long term (current) drug therapy; Z83.3 Family history of diabetes mellitus; Z87.891 Personal history of nicotine dependence
CPT/HCPCS: 36415; 80053; 80061; 80305; 80320; 81001; 81025; 83036; 84443; 85025; 86704; 86705; 87077; 87081; 87088; 87186; 87340; 87811; 99285

== ENCOUNTER 2024-01-09 12:51 | Inpatient (IN) | payer MEDICAID ==
[~2024-01-09] VITALS: Ht 160 cm; Wt 56.4 kg
[~2024-01-09 12:51] MED LIST changes: +CARI3CAP PO; -CLON-371 PO; +CLON0.5T4 PO; -NO HOME MEDS; +SULF1TAB45 PO
[2024-01-09 17:13] VITALS: BP 96/72; PULSE 98; RESP 16; TEMP 97.7; O2SAT 99
[2024-01-09] MEDS ORDERED: mag hydrox/Alum hydrox/simeth 30ml oral suspension PO PRN (17:30)
[2024-01-09] MEDS ORDERED: acetaminophen 325mg tablet PO PRN (17:30)
[2024-01-09] MEDS ORDERED: magnesium hydroxide 30ml (MOM) UD suspension PO PRN (17:30)
[2024-01-09] MEDS ORDERED: loperamide 2mg capsule PO PRN (17:30)
[2024-01-09 17:33] VITALS: RESP 16; O2SAT 99
[2024-01-09] MEDS ORDERED: IBUP-1986 PO (19:28)
[2024-01-09] MEDS ORDERED: CLON0.1T2 PO (19:28)
[2024-01-09] MEDS ORDERED: GABA-530 PO (19:28)
[2024-01-09] MEDS ORDERED: FLUO20TA28 PO (19:28)
[2024-01-09 19:55] VITALS: BP 111/66; PULSE 62; TEMP 97.1; O2SAT 97
[2024-01-09] MEDS ORDERED: traZODone 50mg tablet PO SCH (20:00)
[2024-01-09] MEDS ORDERED: non-formulary drug (Ibuprofen 1 TAB) PO PRN (20:45)
[2024-01-09] MEDS: traZODone 50mg tablet PO SCH (21:00)
[2024-01-09] MEDS ORDERED: gabapentin 100mg capsule PO SCH (21:00)
[2024-01-10] MEDS ORDERED: gabapentin 100mg capsule PO SCH
[2024-01-10] MEDS: ibuprofen tablet 400 MG TABLET PO PRN (03:25)
[2024-01-10 07:00] VITALS: RESP 16; O2SAT 98
[2024-01-10] MEDS: FLUoxetine 20mg capsule PO SCH (07:58)
[2024-01-10 08:00] VITALS: BP 119/73; PULSE 92; RESP 16; TEMP 97.8; O2SAT 99
[2024-01-10] MEDS ORDERED: FLUOXETINE HCL PO SCH (08:00)
[2024-01-10 09:07] LABS: THYROID STIMULATING HORMONE 1.02 ulU/ml (0.34-4.50)
[2024-01-10 09:20] LABS: HEMOGLOBIN A1C 4.8 % (4.5-6.2)
[2024-01-10] MEDS: clonazePAM 0.5mg tablet PO SCH (11:45)
[2024-01-10] MEDS: FLU VACC QS2023-24(6MOS UP)/PF 60 MCG/0.5 ML SYRINGE IM ONE (12:00)
[2024-01-10] MEDS: pneumococcal 23-VAL P-sac vacc 25 mcg/0.5ml vial IMVAC ONE (12:00)
[2024-01-10 19:00] VITALS: RESP 16; O2SAT 96
[2024-01-10 19:50] VITALS: BP 111/73; PULSE 96; RESP 16; TEMP 98; O2SAT 96
[2024-01-11 07:00] VITALS: RESP 16; O2SAT 96
[2024-01-11 08:00] VITALS: BP 93/62; PULSE 72; RESP 16; TEMP 98.9; O2SAT 98
[2024-01-11] MEDS: propranolol 10mg tablet PO SCH (08:00)
[2024-01-11] MEDS ORDERED: gabapentin 100mg capsule PO SCH (08:00)
[2024-01-11] MEDS: acetaminophen 325mg tablet PO PRN (17:04)
[2024-01-11 18:03] LABS: HBSAG SCREEN Negative (Negative); HEP B CORE AB, IGM Negative (Negative); HEP B CORE AB, TOT Negative (Negative)
[2024-01-11] MEDS ORDERED: traZODone 50mg tablet PO PRN (18:10)
[2024-01-11 19:00] VITALS: RESP 17; O2SAT 98
[2024-01-11 20:00] VITALS: BP 102/68; PULSE 80; RESP 17; TEMP 98.7; O2SAT 98
[2024-01-11] MEDS: Melatonin 3mg tablet PO SCH (20:37)
[2024-01-11] MEDS: prazosin 1mg capsule PO SCH (20:39)
[2024-01-12 07:00] VITALS: RESP 16; O2SAT 98
[2024-01-12 07:49] VITALS: BP 111/63; PULSE 81; RESP 16; TEMP 98.2; O2SAT 98
[2024-01-12] MEDS: NICOTINE POLACRILEX 2 MG LOZENGE BC PRN (14:22)
[2024-01-12 19:00] VITALS: RESP 16; O2SAT 98
[2024-01-12 20:00] VITALS: BP 107/74; PULSE 91; RESP 16; TEMP 98.2; O2SAT 98
[2024-01-12] MEDS: Melatonin 3mg tablet PO ONE (20:46)
[2024-01-12] MEDS: Melatonin 3mg tablet PO SCH (21:00)
[2024-01-13 07:49] VITALS: RESP 16; O2SAT 98
[2024-01-13 08:00] VITALS: BP 100/67; PULSE 82; RESP 16; TEMP 98; O2SAT 99
[2024-01-13 19:30] VITALS: RESP 18; O2SAT 99
[2024-01-13 19:52] VITALS: BP 114/59; PULSE 85; RESP 16; TEMP 98.4; O2SAT 99
[2024-01-14 07:00] VITALS: RESP 14; O2SAT 99
[2024-01-14] MEDS: FLUoxetine 20mg capsule PO SCH (07:59)
[2024-01-14 08:00] VITALS: BP 106/65; PULSE 98; RESP 14; TEMP 98.9; O2SAT 99
[2024-01-14 19:00] VITALS: BP 98/56; PULSE 86; RESP 14; TEMP 98.4; O2SAT 98
[2024-01-15] MEDS: hydrOXYzine 10 MG tablet PO PRN (05:13)
[2024-01-15 07:00] VITALS: RESP 16; O2SAT 98
[2024-01-15 07:37] VITALS: BP 115/67; PULSE 72; RESP 16; TEMP 97.6; O2SAT 98
[2024-01-15] MEDS ORDERED: PRAZ1CAP5 PO (14:31)
[2024-01-15] MEDS ORDERED: TRAZ-251 PO (14:31)
[2024-01-15] MEDS ORDERED: NICO-907 BC (14:31)
[2024-01-15] MEDS ORDERED: PROP10TA10 PO (14:31)
[2024-01-15] MEDS ORDERED: CLON-565 PO (14:31)
[2024-01-15] MEDS ORDERED: FLUO60TA PO (14:31)
[2024-01-15] MEDS ORDERED: MELA3TAB39 PO (14:31)
[2024-01-15] MEDS ORDERED: HYDR-3717 PO (14:31)
== END 2024-01-15 15:16 | disposition home or self-care (01) | DRG 751 ==
LOC: ADULT MH 12:51 → UNDOADMIN 17:09 → ADULT MH 17:09
PROVIDERS: ADMIT Psychiatry & Neurology Psychiatry; ATTEND Psychiatry & Neurology Psychiatry
DX: F33.2 Major depressive disorder, recurrent severe without psychotic features (principal); F15.10 Other stimulant abuse, uncomplicated; F17.210 Nicotine dependence, cigarettes, uncomplicated; F41.9 Anxiety disorder, unspecified; F43.10 Post-traumatic stress disorder, unspecified; Z83.3 Family history of diabetes mellitus; Z81.8 Family history of other mental and behavioral disorders; Z84.1 Family history of disorders of kidney and ureter; Z79.899 Other long term (current) drug therapy; Z88.5 Allergy status to narcotic agent; Z91.51 Personal history of suicidal behavior
CPT/HCPCS: 36415; 83036; 84443; 86704; 86705; 87081; 87340; 90686; 90732; A6250

== ENCOUNTER 2024-03-07 10:39 | Emergency (ER) | payer MEDICAID ==
[~2024-03-07] VITALS: Ht 160 cm; Wt 59.1 kg
[~2024-03-07 10:39] MED LIST changes: -CARI3CAP PO; +CLON-565 PO; -CLON0.5T4 PO; +FLUO60TA PO; +HYDR-3717 PO; +IBUP-1986 PO; +MELA3TAB39 PO; +NICO-907 BC; +PRAZ1CAP5 PO; +PROP10TA10 PO; -SULF1TAB45 PO; +TRAZ-251 PO
[2024-03-07 10:58] VITALS: BP 95/67; PULSE 95; TEMP 98; O2SAT 97
[2024-03-07 12:45] LABS: BILIRUBIN,URINE NEGATIVE (Neg); CLARITY,URINE SLIGHTLY CLOUDY (Clear); COLOR,URINE STRAW (Yellow); GLUCOSE, URINE NEGATIVE (Neg); KETONES,URINE NEGATIVE (Neg); LEUKOCYTE ESTERASE ,URINE NEGATIVE (Neg); NITRITES, URINE NEGATIVE (Neg); OCCULT BLOOD,URINE NEGATIVE (Neg); PROTEIN,URINE NEGATIVE (Neg); UROBILINOGEN,URINE 0.2 E.U/dL (0.2-1.0)
[2024-03-07 12:46] LABS: URINE HCG NEGATIVE (NEG)
[2024-03-07 12:53] LABS: UA COLLECTION TYPE CLN CATCH MIDSTREAM
[2024-03-07 12:54] LABS: RBC,URINE NONE SEEN /HPF (0-2); SQUAMOUS EPITHELIAL CELL,UR MODERATE /LPF (FEW); WBC,URINE NONE SEEN /HPF (0-4)
[2024-03-07 12:55] LABS: BACTERIA,URINE FEW /HPF (Neg)
[2024-03-07 13:02] LABS: URINE AMPHETAMINE SCREEN NEGATIVE (Neg); URINE BARBITUATE SCREEN NEGATIVE (Neg); URINE BENZODIAZEPINES SCREEN NEGATIVE (Neg); URINE CANNABINOID SCREEN NEGATIVE (Neg); URINE COCAINE SCREEN NEGATIVE (Neg); URINE METHADONE SCREEN NEGATIVE (Neg); URINE OPIATE SCREEN NEGATIVE (Neg); URINE PHENCYCLIDINE SCREEN NEGATIVE (Neg)
[2024-03-07 13:33] LABS: BASOPHILS % (AUTO) 0.4 % (0-1); EOSINOPHILS # (AUTO) 0.2 X10'3 (0-0.9); EOSINOPHILS % (AUTO) 2.4 % (0-6); HEMATOCRIT 41.1 % (35.0-45.0); HEMOGLOBIN 13.6 g/dl (12.0-16.0); LYMPHOCYTES # (AUTO) 2.2 X10'3 (1.1-4.8); LYMPHOCYTES % (AUTO) 34.8 % (21-51); MEAN CORPUSCULAR HEMOGLOBIN 31.2 PG (27.0-31.0); MEAN CORPUSCULAR HGB CONC 33.1 g/dL (33.0-36.5); MEAN CORPUSCULAR VOLUME 94.5 FL (78-98); MEAN PLATELET VOLUME 7.8 FL (7.4-10.4); MONOCYTES # (AUTO) 0.4 X10'3 (0-0.9); MONOCYTES % (AUTO) 5.7 % (2-12); NEUTROPHILS # (AUTO) 3.6 X10'3 (1.8-7.7); NEUTROPHILS % (AUTO) 56.7 % (42-75); PLATELET COUNT 244 X10'3 (140-440); RED BLOOD COUNT 4.36 X10'6 (4.20-5.60); RED CELL DISTRIBUTION WIDTH 13.7 % (11.5-14.5); WHITE BLOOD COUNT 6.3 X10'3 (4.5-11.0)
[2024-03-07 13:52] LABS: ALBUMIN 3.7 G/DL (3.4-5.0); ANION GAP 5 (8-16); BLOOD UREA NITROGEN 8 MG/DL (7-18); BUN/CREATININE RATIO 10.1 (10.0-20.0); CHLORIDE 106 MMOL/L (99-107); CREATININE 0.79 MG/DL (0.40-0.90); GLUCOSE 116 MG/DL (70-104); POTASSIUM 3.7 MMOL/L (3.5-5.1); SODIUM 136 MMOL/L (135-145); THYROID STIMULATING HORMONE 1.12 ulU/ml (0.34-4.50); TOTAL CARBON DIOXIDE 25.4 MMOL/L (24-32); eCRCL 81 ML/MIN; eGFR 82 ML/MIN
[2024-03-07 14:04] LABS: ETHANOL < 10 MG/DL (<10)
[2024-03-07 15:39] VITALS: RESP 14
[2024-03-07] MEDS ORDERED: FLUO60TA PO (16:35)
[2024-03-07] MEDS ORDERED: CLON0.5T2 PO (16:38)
== END 2024-03-07 17:17 | disposition home or self-care (01) ==
LOC: ER 10:39
DX: F41.9 Anxiety disorder, unspecified (principal); Z20.822 Contact with and (suspected) exposure to COVID-19; Z88.5 Allergy status to narcotic agent; Z79.899 Other long term (current) drug therapy; Z79.1 Long term (current) use of non-steroidal anti-inflammatories (NSAID)
CPT/HCPCS: 36415; 80048; 80305; 80320; 81001; 81025; 84443; 85025; 87811; 99284